=== PATIENT | female | born 1970 | race Caucasian/White ===

== ENCOUNTER → 2019-12-20 | Outpatient (CLI) | payer OTHER ==
[2019-12-21 12:09] LABS: RUBEOLA (MEASLES) IGG >300.0 AU/mL (Immune >16.4)
== END | disposition home or self-care (01) ==
LOC: LABMN 15:18
PROVIDERS: ATTEND Internal Medicine
DX: Z02.1 Encounter for pre-employment examination (principal)
CPT/HCPCS: 86706; 86735; 86762; 86765; 86787

== ENCOUNTER → 2020-01-10 | Outpatient (CLI) | payer OTHER | END | disposition home or self-care (01) | LOC: MSR 10:43 | PROVIDERS: ATTEND Internal Medicine | DX: Z02.1 Encounter for pre-employment examination (principal); R76.11 Nonspecific reaction to tuberculin skin test without active tuberculosis | CPT/HCPCS: 86480; 36415-L1; 36415-TC; 71045-TC ==

== ENCOUNTER → 2020-01-31 | Outpatient (CLI) | payer OTHER | END | disposition home or self-care (01) | LOC: LABPV 15:39 | DX: Z20.828 Contact with and (suspected) exposure to other viral communicable diseases (principal) | CPT/HCPCS: U0003-CS ==

== ENCOUNTER 2020-02-29 18:29 | Emergency (ER) | payer SELFPAY | END 2020-02-29 18:42 | disposition left against medical advice (07) | LOC: EMS 18:30 | DX: R10.9 Unspecified abdominal pain (principal); Z53.21 Procedure and treatment not carried out due to patient leaving prior to being seen by health care provider ==

== ENCOUNTER 2020-03-04 22:21 | Emergency (ER) | payer MEDICAID ==
[~2020-03-04] VITALS: Ht 165.1 cm; Wt 89.5 kg
[2020-03-04] MEDS ORDERED: ONDANSETRON HCL 4 MG/2 ML VIAL IVP ONE (23:15)
[2020-03-04 23:43] LABS: BASOPHILS % (AUTO) 0.2 % (0.0-2.0); EOSINOPHILS % (AUTO) 1.3 % (1.0-6.0); HEMOGLOBIN 13.6 g/dL (12.0-16.0); LYMPHOCYTES # (AUTO) 1.2 K/uL (1.0-4.8); LYMPHOCYTES % (AUTO) 8.2 % (22.0-44.0); MEAN CORPUSCULAR HEMOGLOBIN 29.4 pg (26.0-34.0); MEAN CORPUSCULAR HGB CONC 33.3 G/dL (31.0-37.0); MEAN CORPUSCULAR VOLUME 88 fL (80-100); MONOCYTES # (AUTO) 0.5 K/uL (0.1-1.0); MONOCYTES % (AUTO) 3.3 % (2.0-9.0); NEUTROPHILS # (AUTO) 12.3 K/uL (1.8-7.7); PLATELET COUNT (AUTO) 310 K/uL (150-450); RED BLOOD CELL COUNT(AUTO) 4.64 MIL/uL (4.00-5.20); RED CELL DISTRIBUTION WIDTH 13.6 % (11.5-14.5)
[2020-03-04] MEDS ORDERED: SODIUM CHLORIDE 0.9% 1,000 ML IV ONE (23:45)
[2020-03-04 23:51] LABS: COVID AG,FIA SOURCE NASOPHARYNGEAL
[2020-03-04 23:52] LABS: ANION GAP 6 mmol/L (8-16); CALCIUM, TOTAL 9.2 mg/dL (8.8-10.5); CARBON DIOXIDE 31 mmol/L (22-29); CHLORIDE 103 mmol/L (98-107); CREATININE 0.85 mg/dL (0.60-1.30); GLOMERULAR FILTR. RATE CALC > 60 mL/min (>60); GLUCOSE,RANDOM 103 mg/dL (70-110); POTASSIUM 3.8 mmol/L (3.5-5.1); SODIUM SERUM 140 mmol/L (136-145); UREA NITROGEN, BLOOD 10 mg/dL (7-18)
[2020-03-05 00:17] LABS: ALANINE AMINOTRANSFERASE 35 U/L (12-78); ALBUMIN 3.7 g/dL (3.4-5.0); ALKALINE PHOSPHATASE 134 U/L (46-116); ASPARTATE AMINOTRANSFERASE 20 U/L (15-37); BILIRUBIN,TOTAL 0.3 mg/dL (0.1-1.0); CREATINE KINASE, TOTAL ONLY 79 U/L (26-192); LIPASE 56 U/L (73-393); TOTAL PROTEIN, SERUM 7.3 g/dL (6.4-8.2)
[2020-03-05] MEDS ORDERED: SODIUM CHLORIDE 0.9% 1,000 ML IV ONE ×2 (01:15→04:00)
[2020-03-05] MEDS ORDERED: KETOROLAC TROMETHAMINE 30 MG/ML VIAL IVP ONE ×2 (01:15→04:00)
[2020-03-05 01:37] LABS: APPEARANCE,URINE CLEAR (CLEAR); BILIRUBIN,URINE NEGATIVE (NEGATIVE); GLUCOSE, URINE (UA) NEGATIVE (NEGATIVE); KETONES,URINE NEGATIVE (NEGATIVE); LEUKOCYTE ESTERASE ,URINE NEGATIVE (NEGATIVE); NITRATE,URINE NEGATIVE (NEGATIVE); OCCULT BLOOD,URINE MODERATE (NEGATIVE); PROTEIN,URINE NEGATIVE (NEGATIVE); UROBILINOGEN,URINE 0.2 mg/dL (<=1.0)
[2020-03-05 01:40] LABS: BACTERIA,URINE Few /HPF (None Seen); SQUAMOUS EPITHELIAL CELL,UR Rare /LPF (None Seen); WBC,URINE 0-2 /HPF (0-5)
[2020-03-05] MEDS ORDERED: DiphenhydrAMINE HCL 50 MG/ML VIAL IVP ONE (04:00)
[2020-03-05] MEDS ORDERED: METOCLOPRAMIDE HCL 5 MG/ML 2 ML VIAL IVP ONE (04:00)
[2020-03-05] MEDS ORDERED: DEXAMETHASONE SOD PHOS 4 MG/ML 5 ML VIAL IVP ONE (04:00)
[2020-03-05] MEDS ORDERED: ACETAMINOPHEN 500 MG TABLET PO ONE (04:00)
[2020-03-05 04:07] VITALS: BP 128/78
== END 2020-03-05 04:14 | disposition home or self-care (01) ==
LOC: EMS 22:21
DX: N28.89 Other specified disorders of kidney and ureter (principal); N94.89 Other specified conditions associated with female genital organs and menstrual cycle; F17.210 Nicotine dependence, cigarettes, uncomplicated; Z20.828 Contact with and (suspected) exposure to other viral communicable diseases
CPT/HCPCS: 36415; 74177; 80053; 81001; 82550; 83690; 85025; 87426; 96361 ×2; 96374; 96375; 96376; 99285; J1100; J1200; J1885; J2405; J2765; J7030

== ENCOUNTER 2020-05-16 12:57 | Emergency (ER) | payer MEDICAID, OTHER ==
[~2020-05-16] VITALS: Ht 160 cm; Wt 90.9 kg
[2020-05-16 13:12] VITALS: BP 109/70
[2020-05-16] MEDS ORDERED: IBUPROFEN 600 MG TABLET PO ONE (14:15)
[2020-05-16 15:11] LABS: BASOPHILS % (AUTO) 0.8 % (0.0-2.0); EOSINOPHILS % (AUTO) 1.7 % (1.0-6.0); HEMATOCRIT 39.8 % (36-46); HEMOGLOBIN 13.2 g/dL (12.0-16.0); LYMPHOCYTES # (AUTO) 2.3 K/uL (1.0-4.8); LYMPHOCYTES % (AUTO) 21.2 % (22.0-44.0); MEAN CORPUSCULAR HEMOGLOBIN 29.8 pg (26.0-34.0); MEAN CORPUSCULAR HGB CONC 33.2 G/dL (31.0-37.0); MEAN CORPUSCULAR VOLUME 90 fL (80-100); MONOCYTES # (AUTO) 0.6 K/uL (0.1-1.0); NEUTROPHILS # (AUTO) 7.5 K/uL (1.8-7.7); NEUTROPHILS % (AUTO) 70.3 % (40.0-70.0); PLATELET COUNT (AUTO) 325 K/uL (150-450); RED BLOOD CELL COUNT(AUTO) 4.44 MIL/uL (4.00-5.20); RED CELL DISTRIBUTION WIDTH 14.2 % (11.5-14.5)
[2020-05-16 15:29] LABS: ANION GAP 6 mmol/L (8-16); CARBON DIOXIDE 27 mmol/L (22-29); CHLORIDE 104 mmol/L (98-107); CREATININE 0.78 mg/dL (0.60-1.30); GLOMERULAR FILTR. RATE CALC > 60 mL/min (>60); GLUCOSE,RANDOM 114 mg/dL (70-110); POTASSIUM 3.7 mmol/L (3.5-5.1); SODIUM SERUM 137 mmol/L (136-145); UREA NITROGEN, BLOOD 15 mg/dL (7-18)
[2020-05-16 15:35] LABS: ALANINE AMINOTRANSFERASE 30 U/L (12-78); ALBUMIN 3.6 g/dL (3.4-5.0); ALKALINE PHOSPHATASE 139 U/L (46-116); ASPARTATE AMINOTRANSFERASE 18 U/L (15-37); BILIRUBIN,TOTAL 0.2 mg/dL (0.1-1.0); C-REACTIVE PROTEIN QUANT 0.83 mg/dL (0.00-0.30); TOTAL PROTEIN, SERUM 7.5 g/dL (6.4-8.2)
[2020-05-16 16:56] LABS: ERYTHROCYTE SEDIMENTATION RATE 9 MM/HR (0-20)
== END 2020-05-16 16:22 | disposition home or self-care (01) ==
LOC: EMS 12:57
DX: M25.571 Pain in right ankle and joints of right foot (principal); R60.0 Localized edema
CPT/HCPCS: 85651; 86140

== ENCOUNTER → 2020-06-10 | Outpatient (CLI) | payer OTHER ==
[~2020-06-10] VITALS: Ht 165.1 cm; Wt 87.0 kg
[~2020-06-10] MED LIST: ASPI-1450 PO; muscle relaxant PO
[2020-06-10 14:50] VITALS: BP 119/75
== END | disposition home or self-care (01) ==
LOC: SRCNTR 14:50
PROVIDERS: ATTEND Hospitalist
DX: I10 Essential (primary) hypertension (principal)
CPT/HCPCS: G0463; Z7500

== ENCOUNTER → 2020-06-11 | Outpatient (CLI) | payer OTHER ==
[2020-06-11 08:43] LABS: ALANINE AMINOTRANSFERASE 24 U/L (12-78); ALBUMIN 3.6 g/dL (3.4-5.0); ALKALINE PHOSPHATASE 122 U/L (46-116); ANION GAP 6 mmol/L (8-16); ASPARTATE AMINOTRANSFERASE 10 U/L (15-37); BILIRUBIN,TOTAL 0.2 mg/dL (0.1-1.0); CALCIUM, TOTAL 8.9 mg/dL (8.8-10.5); CARBON DIOXIDE 27 mmol/L (22-29); CHLORIDE 103 mmol/L (98-107); CREATINE KINASE, TOTAL ONLY 42 U/L (26-192); CREATININE 0.83 mg/dL (0.60-1.30); GLOMERULAR FILTR. RATE CALC > 60 mL/min (>60); GLUCOSE,RANDOM 97 mg/dL (70-110); POTASSIUM 3.9 mmol/L (3.5-5.1); SODIUM SERUM 136 mmol/L (136-145); TOTAL PROTEIN, SERUM 7.2 g/dL (6.4-8.2); UREA NITROGEN, BLOOD 19 mg/dL (7-18); URIC ACID 2.5 mg/dL (2.6-7.2)
== END | disposition home or self-care (01) ==
LOC: LABPV 07:48
PROVIDERS: ATTEND Hospitalist
DX: M72.2 Plantar fascial fibromatosis (principal); M10.9 Gout, unspecified; M77.8 Other enthesopathies, not elsewhere classified
CPT/HCPCS: 84550; 86038; 86160; 86256; 86430

== ENCOUNTER 2020-07-31 14:06 | Emergency (ER) | payer OTHER ==
[~2020-07-31] VITALS: Ht 165.1 cm; Wt 87.3 kg
[2020-07-31] MEDS ORDERED: ASPI-1450 PO (14:09)
[2020-07-31] MEDS ORDERED: muscle relaxant PO (14:09)
[2020-07-31] MEDS ORDERED: LIDOCAINE 5% TRANSDERMAL PATCH TD ONE (15:45)
[2020-07-31] MEDS ORDERED: KETOROLAC TROMETHAMINE 30 MG/ML VIAL IM ONE (15:45)
[2020-07-31] MEDS ORDERED: DIAZEPAM 5 MG TABLET PO ONE (15:45)
[2020-07-31] MEDS ORDERED: DEXAMETHASONE SOD PHOS 4 MG/ML 5 ML VIAL IM ONE (15:45)
[2020-07-31] MEDS ORDERED: ACETAMINOPHEN 500 MG TABLET PO ONE (15:45)
[2020-07-31] MEDS ORDERED: DICLOFENAC SODIUM 1% 100 GM GEL [4GM] TP ONE (16:00)
[2020-07-31 16:31] VITALS: BP 135/87
== END 2020-07-31 16:32 | disposition home or self-care (01) ==
LOC: EMS 14:35
DX: M54.9 Dorsalgia, unspecified (principal)
CPT/HCPCS: 96372; 99284; J1100; J1885

== ENCOUNTER 2021-06-07 16:23 | Emergency (ER) | payer OTHER ==
[~2021-06-07] VITALS: Ht 162.6 cm; Wt 88.2 kg
[2021-06-07] MEDS ORDERED: ACETAMINOPHEN 500 MG TABLET PO ONE (20:45)
[2021-06-07 22:42] VITALS: BP 130/73
== END 2021-06-07 22:42 | disposition home or self-care (01) ==
LOC: EMS 16:24
DX: S00.83XA Contusion of other part of head, initial encounter (principal); M25.511 Pain in right shoulder; F17.210 Nicotine dependence, cigarettes, uncomplicated; W18.39XA Other fall on same level, initial encounter; Y93.89 Activity, other specified; Y92.89 Other specified places as the place of occurrence of the external cause; Y99.8 Other external cause status
CPT/HCPCS: 70450; 70486; 99284